=== PATIENT | male | born 1995 | race African-American/Black ===

== ENCOUNTER 2021-01-22 02:07 | Emergency (ER) | payer OTHER ==
[2021-01-22 02:39] LABS: BASOPHIL 0.6 % (0-2); EOSINOPHIL 0.3 % (0-5); HCT 42.3 % (42.0-52.0); HGB 14.3 g/dl (13.2-18.0); LYMPHOCYTE 28.4 % (15-48); MCHC 33.8 g/dL (32.0-36.0); MCV 88.9 fL (78.0-100.0); MONOCYTE 7.2 % (0-12); MPV 10.5 fL (6.0-9.5); NEUTROPHIL 63.1 % (41-80); NRBC 0; PLT 205 K/uL (150-400); RBC 4.76 M/uL (4.70-6.00); WBC 7.9 K/uL (4.0-10.5)
[2021-01-22 02:55] LABS: ALBUMIN 4.8 g/dL (3.4-5.0); BILIRUBIN - TOTAL 0.3 mg/dL (0.2-1.0); BUN/CREAT RATIO (CALC) 13.3 RATIO; CREATININE 0.98 mg/dL (0.67-1.17); GLOBULIN (CALCULATION) 3.4 g/dL; POTASSIUM 3.9 mmol/L (3.5-5.1); TOTAL PROTEIN 8.2 g/dL (6.4-8.2)
[2021-01-22 03:04] LABS: BILIRUBIN NEGATIVE (NEGATIVE); BLOOD NEGATIVE Ery/uL (NEGATIVE); CLARITY CLEAR (CLEAR); COLOR YELLOW (YELLOW); GLUCOSE (U) NORMAL (NORMAL); LEUKOCYTES NEGATIVE Leu/uL (NEGATIVE); NITRITE NEGATIVE (NEGATIVE); PROTEIN NEGATIVE (NEGATIVE); SPECIFIC GRAVITY <=1.005 (1.001-1.030); UROBILINOGEN 0.2 mg/dL (0.2-1.0)
[2021-01-22] MEDS ORDERED: IBUPROFEN800 MG PO (08:49)
[2021-01-22] MEDS ORDERED: CYCLOBENZAPRINE10 MG PO (08:49)
[2021-01-22] MEDS ORDERED: NORCO 5-325 TA1 EACH PO (08:49)
== END 2021-01-22 09:37 | disposition home or self-care (01) ==
LOC: FER 02:07
PROVIDERS: Emergency Medicine Emergency Medical Services
DX: S26.91XA Contusion of heart, unspecified with or without hemopericardium, initial encounter (principal); S70.12XA Contusion of left thigh, initial encounter; R68.84 Jaw pain; F17.200 Nicotine dependence, unspecified, uncomplicated; V49.50XA Passenger injured in collision with unspecified motor vehicles in traffic accident, initial encounter; Y92.410 Unspecified street and highway as the place of occurrence of the external cause
CPT/HCPCS: 36415; 70450; 70486; 71250; 72125; 73552; 80053; 81003; 83605; 83690; 84484; 85025; 93005; J1885; J7030